=== PATIENT | female | born 1985 | race Caucasian/White ===

== ENCOUNTER 2021-06-11 09:51 | Inpatient (IN) | payer OTHER ==
[2021-06-11] MEDS ORDERED: Ondansetron PF 4 MG/2 ML Vial IVP PRN ×3 (10:03→18:38)
[2021-06-11] MEDS ORDERED: Diphenoxylate HCl/Atropine Tablet PO PRN ×2 (10:03)
[2021-06-11] MEDS ORDERED: Misoprostol 200 MCG TAB PR PRN (10:03)
[2021-06-11] MEDS ORDERED: Butorphanol Tartrate 1 MG/ML VIAL SLOW IVP PRN (10:03)
[2021-06-11] MEDS ORDERED: Promethazine HCl 25 MG/ML VIAL IM PRN ×2 (10:03→11:44)
[2021-06-11] MEDS ORDERED: HYDROcodone/Acetaminophen 5/325 mg Tablet PO PRN ×2 (10:03)
[2021-06-11] MEDS ORDERED: Acetaminophen 500 MG TAB PO PRN (10:03)
[2021-06-11] MEDS ORDERED: Lidocaine 1% (PF) 30 ML VIAL SC PRN (10:03)
[2021-06-11] MEDS ORDERED: Ibuprofen 800 MG TAB PO PRN (10:03)
[2021-06-11] MEDS ORDERED: hydrALAZINE 20 MG/ML VIAL SLOW IVP PRN ×2 (10:03→18:38)
[2021-06-11] MEDS ORDERED: Docusate 100 MG CAP PO PRN (10:03)
[2021-06-11] MEDS ORDERED: Lactated Ringer's 1,000 ML IV SCH (10:15)
[2021-06-11] MEDS ORDERED: NS w/ Oxytocin 30 units 500 ML IV SCH ×2 (10:15→18:45)
[2021-06-11] MEDS ORDERED: NS w/ Oxytocin 30 units 500 ML ONE (10:39)
[2021-06-11 10:48] LABS: Hemoglobin 12.8 g/dL (12.0-15.5); Mean Corpuscular HGB CONC 33.3 g/dL (32.0-36.0); Mean Corpuscular Hemoglobin 30.4 pg (27.0-33.0); Mean Corpuscular Volume 91.2 fl (81.6-98.3); Mean Platelet Volume 12.3 fl (7.4-10.4); Platelet Count 222 10x3/uL (150-450); RBC Distribution Width 13.9 % (11.5-14.5); Red Blood Cell (RBC) Count 4.21 10x6/uL (3.90-5.03); White Blood Cell (WBC) Count 10.3 10x3/uL (3.5-10.5)
[2021-06-11 10:54] VITALS: BMI 25.8
[2021-06-11] MEDS ORDERED: Fentanyl 2 mcg/Bup 0.1% Cadd 100 ML ONE (11:05)
[2021-06-11 11:12] LABS: HIV (1/2) Antibody/Antigen Non-Reactive (NonReactive); HIV 1/2 INDEX 0.07 S/CO (<1.00); Hep B Surf Ag Non-Reactive S/CO (NonReactive)
[2021-06-11 11:13] LABS: Syphilis Antibody Nonreactive (Nonreactive); Syphilis Antibody Index 0.03 S/CO (<1.00 Non-Reactive)
[2021-06-11 11:20] LABS: HBSAg Index 0.21 S/CO (0-0.99)
[2021-06-11 11:40] LABS: SARS-CoV-2 NAA Rapid Test Not Detected (NotDetected)
[2021-06-11] MEDS ORDERED: Acetaminophen 325 MG TAB PO PRN (11:44)
[2021-06-11] MEDS ORDERED: Hydrocerin (Eucerin) Cream 120 gm Jar TOP PRN (11:44)
[2021-06-11] MEDS ORDERED: ePHEDrine Sulfate 50 MG/10 ML VIAL SLOW IVP PRN (11:44)
[2021-06-11] MEDS ORDERED: diphenhydrAMINE 50 MG/ML VIAL IVP PRN (11:44)
[2021-06-11] MEDS ORDERED: Lactated Ringer's 500 ML IV PRN (11:44)
[2021-06-11] MEDS ORDERED: Naloxone HCl 0.4 mg/ml Vial IVP PRN ×2 (11:44)
[2021-06-11] MEDS ORDERED: Fentanyl 2 mcg/Bupivacaine 0.1% Cassette 100 ML EPIDURAL SCH (11:45)
[2021-06-11] MEDS ORDERED: Communication Order-Pharmacy FS SCH (11:45)
[2021-06-11] MEDS ORDERED: Lanolin Ointment 7 GM TUBE TOP PRN (18:38)
[2021-06-11] MEDS ORDERED: Acetaminophen/Codeine 30-300mg Tablet PO PRN ×2 (18:38)
[2021-06-11] MEDS ORDERED: Preparation H Ointment 28 GM TUBE PR PRN (18:38)
[2021-06-11] MEDS ORDERED: diphenhydrAMINE 25 MG CAP PO PRN (18:38)
[2021-06-11] MEDS ORDERED: Benzocaine-Menthol 82.5 ML CAN TOP PRN (18:38)
[2021-06-11] MEDS ORDERED: Milk Of Magnesia 30 ML UDCUP PO PRN (18:38)
[2021-06-11] MEDS ORDERED: Misoprostol 200 MCG TAB VAG PRN (18:38)
[2021-06-11] MEDS ORDERED: Bisacodyl 10 MG SUPP PR PRN (18:38)
[2021-06-11] MEDS ORDERED: Zolpidem Tartrate 5 MG TAB PO PRN (18:38)
[2021-06-11] MEDS ORDERED: Boostrix 0.5 ML (Tdap) VIAL IM ONE (18:38)
[2021-06-11] MEDS: Ibuprofen 800 MG TAB PO SCH (21:47)
[2021-06-11] MEDS: Docusate Calcium (SURFAK) 240 MG CAP PO SCH (21:47)
[2021-06-12] MEDS: Ibuprofen 800 MG TAB PO SCH ×2 (05:14→13:21)
[2021-06-12 07:32] LABS: Hemoglobin 11.8 g/dL (12.0-15.5); Mean Corpuscular HGB CONC 34.6 g/dL (32.0-36.0); Mean Corpuscular Hemoglobin 31.5 pg (27.0-33.0); Mean Corpuscular Volume 90.9 fl (81.6-98.3); Mean Platelet Volume 12.5 fl (7.4-10.4); Platelet Count 186 10x3/uL (150-450); Red Blood Cell (RBC) Count 3.75 10x6/uL (3.90-5.03); White Blood Cell (WBC) Count 14.3 10x3/uL (3.5-10.5)
[2021-06-12] MEDS: Ferrous Sulfate 325 MG TAB PO SCH ×2 (08:24→18:02)
[2021-06-12] MEDS: Docusate Calcium (SURFAK) 240 MG CAP PO SCH (08:24)
[2021-06-12] MEDS ORDERED: Prenatal Vitamin 1 TAB PO SCH (09:00)
[2021-06-12 18:02] VITALS: BP 105/64; TEMP 98.3
== END 2021-06-12 18:40 | disposition home or self-care (01) | DRG 807 ==
LOC: CSHLD 09:51 → CSHPP 09:52
PROVIDERS: ADMIT Obstetrics & Gynecology; ATTEND Obstetrics & Gynecology
PROC: 10E0XZZ Delivery of Products of Conception, External Approach (ICD-10-PCS; principal; 2021-06-11)
PROC: 0HQ9XZZ Repair Perineum Skin, External Approach (ICD-10-PCS; 2021-06-11)
PROC: 10907ZC Drainage of Amniotic Fluid, Therapeutic from Products of Conception, Via Natural or Artificial Opening (ICD-10-PCS; 2021-06-11)
DX: O70.0 First degree perineal laceration during delivery (principal); Z20.822 Contact with and (suspected) exposure to COVID-19; Z37.0 Single live birth; Z3A.37 37 weeks gestation of pregnancy; Z88.1 Allergy status to other antibiotic agents
CPT/HCPCS: 36415; 51702; 85027; 86780; 86850; 86900; 86901; 87340; 87389; J2590; U0002